=== PATIENT | female | born 1940 | race Caucasian/White ===

== ENCOUNTER → 2016-06-05 | Outpatient (CLI) | payer BC ==
[2013-09-03 13:44] VITALS: BP 187/88
[~2016-06-05] MED LIST: ASPI-482 PO; CA C1CAP PO; ESTR0.5T3 PO; LEVO100T5 PO; MAGN400C PO; TETR15DR14 OP; VALS320T2 PO
--- NOTE | 2016-06-05 16:28 | RAD ---
Bilateral lower extremity arterial ultrasound, 06/05/2016: History: Claudication Duplex evaluation of the major arteries in both lower extremities was performed including grayscale, color-flow and spectral Doppler analysis. There is mild scattered atherosclerotic plaquing bilaterally. On the right, the common femoral artery demonstrates a monophasic Doppler waveform raising the possibility of aortoiliac inflow disease. The right profunda femoris, superficial femoral and popliteal Doppler waveforms are monophasic. No significant focal velocity acceleration is seen in those vessels to suggest high-grade stenosis. Patent posterior tibial, peroneal and anterior tibial arteries are present in the right lower leg demonstrating monophasic Doppler waveforms. The right dorsalis pedis artery is patent with a monophasic Doppler waveform. On the left, the common femoral, superficial femoral and popliteal arteries demonstrate biphasic Doppler waveforms. No prominent velocity acceleration is seen in those vessels to suggest high-grade stenosis. Patent posterior tibial, peroneal and anterior tibial arteries are present in the left lower leg demonstrating biphasic Doppler waveforms. The left dorsalis pedis artery is patent with a biphasic Doppler waveform. IMPRESSION: 1. Abnormal right common femoral Doppler waveform raising the possibility of aortoiliac inflow disease. 2. Mild scattered atherosclerotic plaquing without evidence of high-grade focal femoral-popliteal arterial stenosis. 3. Good three-vessel runoff in both lower legs with patent dorsalis pedis arteries bilaterally.
--- NOTE | 2016-06-05 16:46 | RAD ---
Carotid ultrasound, 06/05/2016: History: Claudication Duplex evaluation of the carotid arteries in neck was performed including grayscale, color-flow and spectral Doppler analysis. There is mild smooth intimal thickening in the common carotid arteries. There is mild plaquing at the carotid bifurcations, more so on the right. The peak systolic velocity in the right internal carotid artery is 120 cm/s with an end-diastolic velocity of 19 cm/s. The internal carotid artery to common carotid artery ratio is 1.7. The Doppler findings suggest narrowing in the 0-50% diameter range. The peak systolic velocity in the left internal carotid artery is 90 cm/s with an end-diastolic velocity of 28 cm/s. There is no duplex evidence of high-grade stenosis. Antegrade flow is present in both vertebral arteries in the neck. IMPRESSION: Mild atherosclerotic plaquing at the carotid bifurcations, right greater than left, with underlying luminal narrowing in the 0-50% diameter range bilaterally. Note: Stenosis calculations for CT, MRA and conventional angiography are based upon determination of the distal ICA diameter in accordance with the NASCET methodology. Stenosis calculations for Doppler studies are derived from validated velocity criteria which are known to correlate with NASCET methodology of determining stenosis.
== END | disposition home or self-care (01) ==
LOC: US 14:15
PROVIDERS: ATTEND Internal Medicine
DX: I73.9 Peripheral vascular disease, unspecified (principal); I70.8 Atherosclerosis of other arteries; Q89.8 Other specified congenital malformations
CPT/HCPCS: 93880; 93925

== ENCOUNTER → 2016-07-07 | Outpatient (CLI) | payer BC ==
[2013-09-03 13:44] VITALS: BP 187/88
--- NOTE | 2016-07-10 09:57 | RAD ---
Indication claudication. Ultrasound was utilized to generate ankle-brachial indices. The examination is being made available to me for first interpretation 07/10/2016 The right and left ankle-brachial indices are 0.68 and 0.72 respectively. These values are abnormal and suggest arterial disease in the lower extremities. IMPRESSION: Abnormal ankle-brachial indices compatible with arterial disease in the lower extremities
== END | disposition home or self-care (01) ==
LOC: US 16:10
PROVIDERS: ATTEND Internal Medicine
DX: I73.9 Peripheral vascular disease, unspecified (principal)
CPT/HCPCS: 93922